=== PATIENT | female | born 1950 | race African-American/Black ===

== ENCOUNTER 2023-11-15 15:01 | Inpatient (IN) | payer OTHER, SELFPAY ==
[2023-11-15] VITALS (41 sets, daily range): BP systolic 179–229; BP diastolic 80–114; PULSE 75–105; RESP 18–30; TEMP 36.4–36.6; O2SAT 84–97; BMI 28.1; BMI 29.2
--- NOTE | 2023-11-15 15:39 | XR_ITS ---
Patient: INA LORENZO Facility:?[facility] R[facility] Patient ID:?[id number] Site Patient ID:?[id number]. Site :?[id number] Study:?XRay-Chest 1V-11/15/2023 3:55:00 PM Ordering Physician:?DR. SEXTON Final Report: Indication: Shortness of breath Comparison: None available. Technique: Single AP view chest Findings: There is hyperinflation and chronic interstitial change. There are diffusely increased interstitial markings likely representing pulmonary edema with small basilar pleural effusions. The cardiac silhouette is mildly prominent. The bony thorax is grossly intact. Impression: Diffusely increased interstitial markings likely representing pulmonary edema with likely small basilar pleural effusions with adjacent compressive atelectasis and/or infiltrates. Dictated by Jeremy Choudhury MD @ 11/15/2023 4:04:56 PM Signed by:?Jeremy Choudhury MD @11/15/2023 4:04:56 PM (Electronic Signature)
--- NOTE | 2023-11-15 15:42 | ED_ITS ---
HPI - General Adult General Date Seen: 11/15/23 Chief complaint: Shortness of Breath/Dyspnea Stated complaint: wheezing, coughing, swelling on legs Time Seen by Provider: 11/15/23 15:21 Source: patient and family Mode of arrival: ambulatory Limitations: language barrier History of Present Illness HPI narrative: Patient is a 73-year-old woman here with her grandson who is assisting with int erpretation at her request. She is [place]. History provided through her grandson is that she has a history of heart failure, seen at [place] for this last year. For a while now he says that she has complained of shortness of breath on and off, and he says that she has told them that she will have a good week and then the next week it will not be good. She does have a lot of swelling in her legs. She notes shortness of breath today, some tightness in her chest, she has had a cough as well. No fevers that he is aware of. He says he has not heard her complain about chest pain at home. She is on a number of medications, they do not know what any of them are although she is on something for blood pressure and something for diabetes. She normally goes to [place] [id number] as she lives in [place] but did not want to go there today. Related Data Home Medications Medication Instructions Recorded Confirmed acetaminophen 500 mg tablet 1,000 mg PO TID PRN 11/15/23 11/15/23 (Acetaminophen Extra Strength) albuterol sulfate 90 mcg/actuation 2 puff inhalation QID PRN dyspnea 11/15/23 11/15/23 aerosol inhaler amlodipine 10 mg tablet (Norvasc) 10 mg PO DAILY 11/15/23 11/15/23 carvedilol 25 mg tablet (Coreg) 25 mg PO BID 11/15/23 11/15/23 guanfacine 1 mg tablet 1 mg PO BID 11/15/23 11/15/23 hydralazine 50 mg tablet 50 mg PO BID 11/15/23 11/15/23 insulin aspart U-100 100 unit/mL 8 unit subcut DAILY 11/15/23 11/15/23 subcutaneous cartridge insulin glargine 100 unit/mL 30 unit subcut QPM 11/15/23 11/15/23 subcutaneous solution isosorbide mononitrate 30 mg 30 mg PO DAILY 11/15/23 11/15/23 tablet,extended release 24 hr omeprazole 40 mg capsule,delayed 40 mg PO DAILY 11/15/23 11/15/23 release peg 400-propylene glycol 0.4 %-0.3 1 drp ophthalmic (eye) BID PRN 11/15/23 11/15/23 % eye drops (Lubricant Eye (PG-PEG 400)) prochlorperazine maleate 10 mg 10 mg PO TID 11/15/23 11/15/23 tablet (Compazine) torsemide 20 mg tablet 60 mg PO DAILY 11/15/23 11/15/23 ergocalciferol (vitamin D2) 1,250 1,250 mcg PO Q7D 11/16/23 11/16/23 mcg (50,000 unit) capsule multivitamin with folic acid 400 1 tab PO DAILY 11/16/23 11/16/23 mcg tablet (Tab-A-Doreen) Allergies Allergy/AdvReac Type Severity Reaction Status Date / Time FIFI Inhibitors AdvReac Hyperkalemi Verified 11/15/23 20:36 a ARB-Angiotensin Receptor AdvReac Hyperkalemi Verified 11/15/23 20:36 Antagonist a Review of Systems Status of ROS: Reports: 10 or more systems reviewed and unremarkable except as noted in History and below [facility] Medical History (Updated 11/15/23 @ 20:49 by Analia Boss MD) Gastroesophageal reflux disease without esophagitis ?K21.9 - Gastro-esophageal reflux disease without esophagitis (ICD-10) Hyponatremia ?E87.1 - Hypo-osmolality and hyponatremia (ICD-10) Cardiovascular renal disease ?I13.10 - Hypertensive heart and chronic kidney disease without heart failure, with stage 1 through stage 4 chronic kidney disease, or unspecified chronic kidney disease (ICD-10) Hyperkalemia ?E87.5 - Hyperkalemia (ICD-10) Anemia ?D64.9 - Anemia, unspecified (ICD-10) Mixed stress and urge urinary incontinence ?N39.46 - Mixed incontinence (ICD-10) Helicobacter pylori gastrointestinal tract infection ?A04.8 - Other specified bacterial intestinal infections (ICD-10) Cataract ?H26.9 - Unspecified cataract (ICD-10) Polymyalgia rheumatica ?M35.3 - Polymyalgia rheumatica (ICD-10) Colon cancer screening declined ?Z53.20 - Procedure and treatment not carried out because of patient's decision for unspecified reasons (ICD-10) Mammogram declined ?Z53.20 - Procedure and treatment not carried out because of patient's decision for unspecified reasons (ICD-10) Chronic kidney disease, stage 4 (severe) ?N18.4 - Chronic kidney disease, stage 4 (severe) (ICD-10) Osteopenia ?M85.80 - Other specified disorders of bone density and structure, unspecified site (ICD-10) Diabetic polyneuropathy ?E11.42 - Type 2 diabetes mellitus with diabetic polyneuropathy (ICD-10) Hematuria ?R31.9 - Hematuria, unspecified (ICD-10) Contracture of muscle of right forearm ?M62.431 - Contracture of muscle, right forearm (ICD-10) Tension headache ?G44.209 - Tension-type headache, unspecified, not intractable (ICD-10) Type 2 diabetes mellitus ?E11.9 - Type 2 diabetes mellitus without complications (ICD-10) Hyperlipidemia ?E78.5 - Hyperlipidemia, unspecified (ICD-10) Hypertension ?I10 - Essential (primary) hypertension (ICD-10) (HFpEF) heart failure with preserved ejection fraction ?I50.30 - Unspecified diastolic (congestive) heart failure (ICD-10) Social History (Updated 11/15/23 @ 19:10 by Analia Boss MD) Narrative: Lives independently in an apartment. Grandson cares for her. Family also lives in [place] and she is typically cared for at [address] She is a lifelong nonsmoker. No alcohol use. Full code. What is your current living situation?: I presently have a place to live Problems where you live: no known problems Problems where you live details: n/a In the past 12 months, utilities in danger of being shut off: no In past 12 months, lack of transportation kept you from medical appts, meetings, work, or getting things needed for daily living: no In the past 12 mos, have been you worried that your food would run out before you had money to buy more?: never true In the past 12 mos, the food you bought just didn't last and you didn't have money to buy more?: never true Smoking Status: Never smoker Do you use any of these nicotine containing products: None Second hand tobacco smoke exposure: No How often do you have a drink containing alcohol: never How often do you have six or more drinks on one occasion: Never AUDIT-C Alcohol total score: 0 Non-prescribed substance use: denies use Caffeine: Yes (tea) How often does anyone, including family, friends and others, physically hurt you : never How often does anyone, including family, friends and others, insult or talk down to you: never How often does anyone, including family, friends and others, threaten you with harm: never How often does anyone, including family, friends and others, scream or curse at you: never service: No Exam Narrative: Exam Narrative: Vital signs as noted above. In general, an alert, nontoxic woman. She appears dyspneic with any exertion. Head: Normocephalic, atraumatic. Eyes: Pupils are equal reactive. Extraocular movements are full. Conjunctivae are normal. ENT: Mucous membranes are moist. Delete Neck: Supple without lymphadenopathy. Heart: Regular rate and rhythm. No murmur or rub. Lungs: Breath sounds are somewhat decreased, I do not hear significant crackles, no wheezes. Tachypneic with exertion. Abdomen: Soft and nontender. No organomegaly. Extremities: Well perfused. Mild to moderate edema noted in bilateral lower extremities. No calf tenderness or erythema. Neurologic: Patient is alert and oriented to person and place. Speech is fluent. Face is symmetric. Moves all extremities equally. Affect: Normal. Skin: Warm and dry. Well perfused. Const: Vital Signs, click to edit/add: Vital Signs - 24 hr 11/15/23 15:10 11/15/23 15:34 11/15/23 15:39 Temperature 97.5 F L Pulse Rate 79 Pulse Rate [Pulse Oximeter] 80 Respiratory Rate Blood Pressure 204/108 H Blood Pressure [Ri ght Arm] Blood Pressure [Ri ght Upper Arm] 216/80 H Pulse Oximetry 96 95 95 Oxygen Delivery Me thod Room Air Oxygen Flow Rate 11/15/23 15:40 11/15/23 15:45 11/15/23 16:00 Temperature Pulse Rate 77 79 80 Pulse Rate [Pulse Oximeter] Respiratory Rate Blood Pressure Blood Pressure [Ri ght Arm] Blood Pressure [Ri ght Upper Arm] Pulse Oximetry 94 94 93 Oxygen Delivery Me thod Oxygen Flow Rate 11/15/23 16:02 11/15/23 16:15 11/15/23 16:18 Temperature Pulse Rate 78 77 85 Pulse Rate [Pulse Oximeter] Respiratory Rate Blood Pressure 229/104 H 228/114 H Blood Pressure [Ri ght Arm] Blood Pressure [Ri ght Upper Arm] Pulse Oximetry 94 94 94 Oxygen Delivery Me thod Oxygen Flow Rate 11/15/23 16:30 11/15/23 16:32 11/15/23 16:33 Temperature Pulse Rate 76 80 89 Pulse Rate [Pulse Oximeter] Respiratory Rate Blood Pressure 216/107 H Blood Pressure [Ri ght Arm] Blood Pressure [Ri ght Upper Arm] Pulse Oximetry 93 95 94 Oxygen Delivery Me thod Oxygen Flow Rate 11/15/23 16:35 11/15/23 16:45 11/15/23 17:00 Temperature Pulse Rate 76 76 Pulse Rate [Pulse Oximeter] 105 H Respiratory Rate 30 H Blood Pressure Blood Pressure [Ri ght Arm] Blood Pressure [Ri ght Upper Arm] Pulse Oximetry 84 L 94 94 Oxygen Delivery Me thod Room Air Oxygen Flow Rate 11/15/23 17:00 11/15/23 17:03 11/15/23 17:10 Temperature Pulse Rate 75 Pulse Rate [Pulse Oximeter] Respiratory Rate Blood Pressure 225/99 H Blood Pressure [Ri ght Arm] Blood Pressure [Ri ght Upper Arm] Pulse Oximetry 94 95 84 L Oxygen Delivery Me thod Nasal Cannula Room Air Oxygen Flow Rate 2 11/15/23 17:27 Temperature 97.8 F Pulse Rate Pulse Rate [Pulse Oximeter] Respiratory Rate 18 Blood Pressure Blood Pressure [Ri ght Arm] 205/101 H Blood Pressure [Ri ght Upper Arm] Pulse Oximetry 97 Oxygen Delivery Me thod Room Air Oxygen Flow Rate Documenting provider has reviewed patient's vital signs: yes Course Course ED Course: Patient has never been here before but we were able to get records from a recent clinic visit on September 30. She has a history of congestive heart failure with preserved ejection fraction, though I do not have a prior echo. She takes Coreg, isosorbide, torsemide 60 mg daily for her heart failure. She is on insulin for her diabetes. Other medications reviewed. It looks as if she has chronic renal insufficiency, creatinine runs between 1.4-1.9 on prior labs. Last BNP which was in April of 2023 was 821. It also notes at her clinic visit that [place] was [place] of the country [place] months prior to that. She does have bilateral lower extremity edema today, O2 sats are 95-96% on room air although she appears dyspneic with even mild exertion. Diagnostic considerations include exacerbation of congestive heart failure, pulmonary infections such as pneumonia or influenza, pulmonary embolism, acute coronary syndrome, pleural effusion among others. Lab and x-ray pending. Chest x-ray shows cardiomegaly and pulmonary edema. Final radiology read as follows:Findings: There is hyperinflation and chronic interstitial change. There are diffusely increased interstitial markings likely representing pulmonary edema with small basilar pleural effusions. The cardiac silhouette is mildly prominent. The bony thorax is grossly intact. Impression: Diffusely increased interstitial markings likely representing pulmonary edema with likely small basilar pleural effusions with adjacent compressive atelectasis and/or infiltrates. I gave 60 of IV Lasix, a sublingual nitro. She is on Imdur chronically. Labs are notable for a white blood cell count of 12.5, hemoglobin of 11.2. Metabolic panel notable for mildly increased creatinine of 1.6, GFR of 33. D-dimer was elevated at 2.7. Blood gas is normal. LFTs are unremarkable, CRP mildly elevated at 3.4, BNP elevated at 5840. COVID influenza and RSV are negative. Point of care troponin was 0.02. EKG showed a ventricular rate of 80, sinus rhythm, right bundle branch block. No previous EKGs available for comparison. Ambulatory, she is significantly dyspneic, O2 sats are 84%. I do think she needs hospitalization for diuresis. D-dimer is significantly elevated, she had traveled back from [place] in August. I talked with them about CT verses anticoagulation in observation given her GFR, she would like to proceed with CT scan today. Care is discussed with hospitalist, she will be admitted to the hospital for further care. Vital Signs Vital signs: Initial Vital Signs Temperature 97.5 F L 11/15/23 15:10 Temperature Source Temporal Artery Scan 11/15/23 15:10 Pulse Rate 80 11/15/23 15:10 Blood Pressure 216/80 H 11/15/23 15:10 Blood Pressure Mean 125 H 11/15/23 15:10 Blood Pressure Position Sitting 11/15/23 15:10 Pulse Oximetry 96 11/15/23 15:10 Oxygen Delivery Method Room Air 11/15/23 15:10 Vital Signs Temperature 97.5 F L 11/15/23 15:10 Pulse Rate 80 11/15/23 15:10 Blood Pressure 216/80 H 11/15/23 15:10 Pulse Oximetry 96 11/15/23 15:10 Oxygen Delivery Method Room Air 11/15/23 15:10 Temperature 97.9 F 11/16/23 09:00 Pulse Rate 72 11/16/23 10:00 Respiratory Rate 22 11/16/23 09:00 Blood Pressure 128/70 11/16/23 10:00 Pulse Oximetry 95 11/16/23 09:00 Oxygen Delivery Method Room Air 11/16/23 09:00 Oxygen Flow Rate 2 11/15/23 17:00 Medications Administered Medications: Generic Name Dose Route Start Last Admin Trade Name Freq PRN Reason Stop Dose Admin Amlodipine Besylate 10 mg 11/16/23 09:00 11/16/23 08:12 Amlodipine 10 Mg Tablet PO 10 mg DAILY KENNETH Administration Carvedilol 25 mg 11/15/23 21:00 11/16/23 08:12 Carvedilol 25 Mg Tablet PO 25 mg BID KENNETH Administration Hydralazine HCl 50 mg 11/16/23 09:00 11/16/23 08:11 Hydralazine 25 Mg Tablet PO 25 mg TID KENNETH Administration Insulin Aspart 0 unit 11/15/23 21:00 11/16/23 07:37 Insulin Aspart 100 Unit/Ml SUBCUT Not Given ACHS [facility] Protocol Isosorbide Mononitrate 60 mg 11/16/23 09:00 11/16/23 08:11 Isosorbide Mononitrate Er 30 Mg Tab PO 60 mg DAILY KENNETH Administration Multivitamins/Minerals 1 tab 11/16/23 09:00 11/16/23 08:12 Multivitamin/Minerals 1 Tablet PO 1 tab DAILY [facility] Administration Guanfacine 1 Mg 0 mg 11/16/23 09:00 11/16/23 08:24 Tablet PO Not Given BID KENNETH Omeprazole 40 mg 11/16/23 09:00 11/16/23 08:12 Omepraz[address] PO 40 mg DAILY KENNETH Administration Sodium Chloride 5 ml 11/15/23 21:00 11/16/23 08:12 Sodium Chloride 0.9 % (Flush) 10 Ml Syringe IVF 5 ml BID KENNETH Administration Discontinued Medications Generic Name Dose Route Start Last Admin Trade Name Freq PRN Reason Stop Dose Admin Enoxaparin Sodium 30 mg 11/15/23 19:00 11/15/23 19:47 Enoxaparin 30 Mg/0.3ml Inj SUBCUT 30 mg Q24H KENNETH Administration Furosemide 60 mg 11/15/23 16:00 11/15/23 16:13 Furosemide 10 Mg/Ml Inj IVP 11/15/23 16:01 60 mg ONCE ONE Administration Furosemide 60 mg 11/16/23 08:00 11/16/23 08:13 Furosemide 10 Mg/Ml Inj IVP 60 mg BID@08,16 KENNETH Administration Hydralazine HCl 50 mg 11/15/23 21:30 11/15/23 22:14 Hydralazine 25 Mg Tablet PO 50 mg BID KENNETH Administration Nitroglycerin/Dextrose 25,000 mcg in 250 mls @ 3 mls/hr 11/15/23 20:16 11/16/23 01:00 Nitroglycerin/Dextrose IVPB 0 mcg/min .TITRATE PRN 0 mls/hr Hypertension Infusion Protocol 5 MCG/MIN Nitroglycerin 0.4 mg 11/15/23 16:00 11/15/23 16:15 Nitroglycerin 0.4 Mg Tab.Subl SUBLINGUAL 11/15/23 16:01 0.4 mg ONCE ONE Administration Non-Formulary Medication 1 mg 11/15/23 21:00 11/16/23 08:13 Guanfacine PO Not Given BID [facility] Medical Decision Making Lab Data Labs: Lab Results 11/15/23 11/15/23 Range/Units 15:40 16:00 WBC 12.48 H (4.50-11.00) K/uL RBC 3.58 L (4.00-5.20) m/uL Hgb 11.2 L (12.0-16.0) gm/dL Hct 35.1 (33.0-51.0) % MCV 98 (80-100) fL MCH 31 (26-34) pg MCHC 32 (32-36) gm/dL RDW Coeff of Lauri 13.2 (11.5-15.5) % Plt Count 332 (140-440) K/uL Neut % (Auto) 60.0 (42.0-72.0) % Lymph % (Auto) 28.1 (20-44) % Barron % (Auto) 7.9 (0.0-11.0) % Eos % (Auto) 3.3 (0.0-7.0) % Baso % (Auto) 0.3 (0.0-3.0) % Neut # (Auto) 7.50 H (1.7-7.0) K/uL Lymph # (Auto) 3.50 H (0.90-2.90) K/uL Barron # (Auto) 1.00 H (0.00-0.90) K/UL Eos # (Auto) 0.40 (0.00-0.50) K/uL Baso # (Auto) 0.00 (0.00-0.30) K/uL Abs Immat Gran (auto) 0.00 (0.00-0.30) K/uL Imm/Tot Granulo (auto) 0.4 % D-Dimer Quant (PE/DVT) 2.72 H (0.00-0.50) ug/ml VBG pH 7.397 (7.32-7.43) VBG pCO2 39 L (40-50) mmHG VBG pO2 43.7 (25-47) mmHG VBG HCO3 24 (21-28) mmol/L Sodium 138 (135-149) mmol/L Potassium 4.3 (3.6-5.1) mmol/L Chloride 108 (96-114) mmol/L Carbon Dioxide 23 (20-32) mmol/L Anion Gap 7 (7-15) mEq/L BUN 33 H (7-30) mg/dL Creatinine 1.6 H (0.5-1.5) mg/dL Estimated Creat Clear 30.65 Estimated GFR 33 ml/min Glucose 85 (60-115) mg/dL Calcium 9.0 (8.4-10.6) mg/dL Total Bilirubin 0.6 (0.1-1.5) mg/dL Direct Bilirubin 0.2 (0.0-0.5) mg/dL AST 39 H (12-35) U/L ALT 27 (4-35) U/L Alkaline Phosphatase 140 (40-150) U/L C-Reactive Protein 3.4 H (0.5-1.0) mg/dL NT-Pro-B Natriuret Pep 5840 pg/mL Total Protein 8.7 H (6.0-8.3) g/dL Albumin 3.8 (3.3-5.0) g/dL TSH 3.250 (0.270-4.200) uIU/mL SARS-CoV-2 (PCR) Negative SARS-CoV-2 (Negative) Influenza Type A (PCR) Negative PCR FLU A (Negative) Influenza Type B (PCR) Negative PCR FLU B (Negative) RSV (PCR) Negative PCR RSV (Negative) POC Troponin I 0.02 (0.01-0.04) ng/ml Discharge Plan Discharge Clinical Impression: Congestive heart failure Patient Disposition: Admitted As Observation Condition: Stable
[2023-11-15 16:10] LABS: HCO3 VBG 24 mmol/L (21-28); PCO2 VBG 39 mmHG (40-50); PO2 VBG 43.7 mmHG (25-47); pH VBG 7.397 (7.32-7.43)
[2023-11-15 16:13] LABS: Basophils Percent Auto 0.3 % (0.0-3.0); Eosinophils Percent Auto 3.3 % (0.0-7.0); Hematocrit 35.1 % (33.0-51.0); Hemoglobin* 11.2 gm/dL (12.0-16.0); Immature Granulocytes Pct Auto 0.4 %; Lymphocytes Percent Auto 28.1 % (20-44); Mean Corpuscular HGB Conc 32 gm/dL (32-36); Mean Corpuscular Hemoglobin 31 pg (26-34); Mean Corpuscular Volume 98 fL (80-100); Monocytes Percent Auto 7.9 % (0.0-11.0); Platelet Count* 332 K/uL (140-440); RDW Coefficient of Variation % 13.2 % (11.5-15.5); Red Blood Count 3.58 m/uL (4.00-5.20); Slide Review Reflex No; White Blood Count* 12.48 K/uL (4.50-11.00)
[2023-11-15] MEDS: FUROSEMIDE 10 MG/ML inj 60 MG IVP (16:13)
[2023-11-15] MEDS: NITROGLYCERIN 0.4 MG TAB.SUBL SUBLINGUAL (16:15)
[2023-11-15 16:16] LABS: Troponin, Point-of-Care* 0.02 ng/ml (0.01-0.04)
[2023-11-15 16:26] LABS: Albumin* 3.8 g/dL (3.3-5.0); Chloride* 108 mmol/L (96-114); Sodium* 138 mmol/L (135-149)
[2023-11-15 16:27] LABS: Potassium* 4.3 mmol/L (3.6-5.1)
[2023-11-15 16:30] LABS: Alanine Aminotransferase* 27 U/L (4-35); Alkaline Phosphatase* 140 U/L (40-150); Anion Gap 7 mEq/L (7-15); Aspartate Amino Transferase* 39 U/L (12-35); Bilirubin Direct* 0.2 mg/dL (0.0-0.5); Bilirubin Total* 0.6 mg/dL (0.1-1.5); Blood Urea Nitrogen* 33 mg/dL (7-30); Carbon Dioxide* 23 mmol/L (20-32); Creatinine* 1.6 mg/dL (0.5-1.5); Est. Creatinine Clearance* 30.65; Estimated Glomerular Filt Rate 33 ml/min; Glucose* 85 mg/dL (60-115); Total Protein* 8.7 g/dL (6.0-8.3)
[2023-11-15 16:31] LABS: D Dimer Quantitative* 2.72 ug/ml (0.00-0.50)
[2023-11-15 16:32] LABS: C Reactive Protein* 3.4 mg/dL (0.5-1.0)
[2023-11-15 16:40] LABS: NT Pro B Type NatriureticPept* 5840 pg/mL
[2023-11-15 16:57] LABS: PCR FLU A Negative PCR FLU A (Negative); PCR FLU B Negative PCR FLU B (Negative); PCR RSV Negative PCR RSV (Negative); SARS PCR* Negative SARS-CoV-2 (Negative)
--- NOTE | 2023-11-15 16:59 | CT_ITS ---
Patient: INA LORENZO Facility:?[facility] R[facility] Patient ID:?[id number] Site Patient ID:?[id number]. Site :?[id number] Study:?CT-Chest PE 95CC ISOVUE 370-11/15/2023 5:28:09 PM Ordering Physician:?DR. SEXTON Final Report: INDICATION: Shortness of breath, elevated D-dimer. TECHNIQUE: CT chest PE was acquired with 95 cc Isovue 370 IV contrast. COMPARISON: None. FINDINGS: Heart and vasculature: Contrast opacification of the pulmonary arterial tree is adequate. No sign of pulmonary embolism. Cardiomegaly. Thoracic aorta and pulmonary artery are normal in caliber. Lungs and pleura: Interseptal thickening with mosaic attenuation throughout the lungs. No focal consolidations. Trace pleural effusions with compressive atelectasis. No pneumothorax. Lymph nodes/mediastinum: Multiple mildly enlarged mediastinal lymph nodes. Chest wall: No masses. Upper abdomen: No acute or significant findings. Bones: Unremarkable for age. IMPRESSION: No pulmonary embolism. Mild interseptal thickening and mosaic attenuation, possibly small vessel/airway disease or pulmonary edema. No focal consolidations. Trace bilateral pleural effusions. Cardiomegaly. Additional reflux of contrast into the hepatic veins suggestive of elevated right heart pressures Multiple mildly enlarged mediastinal lymph nodes, possibly reactive. Please note that all CT scans at this facility use dose modulation, iterative reconstruction, and/or weight-based dosing when appropriate to reduce radiation dose to as low as reasonably achievable. Dictated by Guerrero Islas MD @ 11/15/2023 5:36:36 PM Signed by:?Guerrero Islas MD @11/15/2023 5:36:36 PM
--- NOTE | 2023-11-15 18:06 | P.IMHP_ITS ---
Hospitalist- H&P: PIERRE History of Present Illness Time Seen by Provider: 17:50 Date Seen: 11/15/23 Chief complaint: wheezing, coughing, swelling on legs Narrative: Skylar Pepe is a 73 year old female with a past medical history significant for HFpEF, hypertension, hyperlipidemia, type 2 diabetes mellitus, CKD stage IV, polymyalgia rheumatica, and diabetic polyneuropathy who presents with cough and shortness of breath. Her grandson is in the room with her. She declines electrophysiology nurse practitioner and he interprets for her. Her son, Mansoor, was on his son's phone and we had a brief conversation about heart failure with preserved ejection fraction, hypertensive urgency, and the plan of care. She complains of a wet cough that is nonproductive. This has been going on for a few weeks. During that time she has also become increasingly more short of breath both at night an d with activity. She gets significantly short of breath just going 10 ft to the bathroom. Sometime she is even short of breath sitting in the chair. At night she sleeps for about an hour and then wakes up coughing, feeling short of breath, and then lays back down on her right side, flat, to sleep. She then continues to wake up every hour with these same symptoms throughout the night. She has chronic lower extremity edema, but has not noticed any worsening over the last few weeks. She occasionally has some chest pain and headache as well. Her history is notable for tension headaches. She does not have any known heart disease, but does have longstanding diabetes. This is her 5th admission for HF exacerbation in the past year. Three were between December-January 2023 and were associated with LYNETTE. Her last admission was in March, her BNP was 1,015, and she was discharged home with home health care. She tells me she has been on a low-sodium diet and fluid restriction. Her son asked me if she could be transferred to [address] because her family all lives in [place]. We discussed how she was given this option in the ER prior to admission, and chose to stay at our hospital. At this time since she is already admitted to our hospital it is more challenging to transfer her. We discussed that this would be a lateral transfer and she has a potential need for oxygen and medical care for which she would need an ambulance transfer, which to my understanding, would likely not be covered by insurance. I informed them that she is able to leave [facility] and go to the ER at [place] [phone] if that is her wish, but it would be against my medical advice. He demonstrated understanding and asked that she stay in the hospital here tonight. Review of Systems Status of ROS: Reports: 10 or more systems reviewed and unremarkable except as noted in History and below [facility] Medical History (Updated 11/15/23 @ 20:49 by Analia Boss MD) Gastroesophageal reflux disease without esophagitis ?K21.9 - Gastro-esophageal reflux disease without esophagitis (ICD-10) Hyponatremia ?E87.1 - Hypo-osmolality and hyponatremia (ICD-10) Cardiovascular renal disease ?I13.10 - Hypertensive heart and chronic kidney disease without heart failure, with stage 1 through stage 4 chronic kidney disease, or unspecified chronic kidney disease (ICD-10) Hyperkalemia ?E87.5 - Hyperkalemia (ICD-10) Anemia ?D64.9 - Anemia, unspecified (ICD-10) Mixed stress and urge urinary incontinence ?N39.46 - Mixed incontinence (ICD-10) Helicobacter pylori gastrointestinal tract infection ?A04.8 - Other specified bacterial intestinal infections (ICD-10) Cataract ?H26.9 - Unspecified cataract (ICD-10) Polymyalgia rheumatica ?M35.3 - Polymyalgia rheumatica (ICD-10) Colon cancer screening declined ?Z53.20 - Procedure and treatment not carried out because of patient's decision for unspecified reasons (ICD-10) Mammogram declined ?Z53.20 - Procedure and treatment not carried out because of patient's decision for unspecified reasons (ICD-10) Chronic kidney disease, stage 4 (severe) ?N18.4 - Chronic kidney disease, stage 4 (severe) (ICD-10) Osteopenia ?M85.80 - Other specified disorders of bone density and structure, unspecified site (ICD-10) Diabetic polyneuropathy ?E11.42 - Type 2 diabetes mellitus with diabetic polyneuropathy (ICD-10) Hematuria ?R31.9 - Hematuria, unspecified (ICD-10) Contracture of muscle of right forearm ?M62.431 - Contracture of muscle, right forearm (ICD-10) Tension headache ?G44.209 - Tension-type headache, unspecified, not intractable (ICD-10) Type 2 diabetes mellitus ?E11.9 - Type 2 diabetes mellitus without complications (ICD-10) Hyperlipidemia ?E78.5 - Hyperlipidemia, unspecified (ICD-10) Hypertension ?I10 - Essential (primary) hypertension (ICD-10) (HFpEF) heart failure with preserved ejection fraction ?I50.30 - Unspecified diastolic (congestive) heart failure (ICD-10) Social History (Updated 11/15/23 @ 19:10 by Analia Boss MD) Narrative: Lives independently in an apartment. Grandson cares for her. Family also lives in [place] and she is typically cared for at [address] She is a lifelong nonsmoker. No alcohol use. Full code. What is your current living situation?: I presently have a place to live Problems where you live: no known problems Problems where you live details: n/a In the past 12 months, utilities in danger of being shut off: no In past 12 months, lack of transportation kept you from medical appts, meetings, work, or getting things needed for daily living: no In the past 12 mos, have been you worried that your food would run out before you had money to buy more?: never true In the past 12 mos, the food you bought just didn't last and you didn't have money to buy more?: never true Smoking Status: Never smoker Do you use any of these nicotine containing products: None Second hand tobacco smoke exposure: No How often do you have a drink containing alcohol: never How often do you have six or more drinks on one occasion: Never AUDIT-C Alcohol total score: 0 Non-prescribed substance use: denies use Caffeine: Yes (tea) How often does anyone, including family, friends and others, physically hurt you : never How often does anyone, including family, friends and others, insult or talk down to you: never How often does anyone, including family, friends and others, threaten you with harm: never How often does anyone, including family, friends and others, scream or curse at you: never service: No Meds Home Medications and Allergies Home Medications Medication Instructions Recorded Confirmed Type acetaminophen 500 mg tablet 1,000 mg PO TID PRN 11/15/23 11/15/23 History (Acetaminophen Extra Strength) albuterol sulfate 90 mcg/actuation 2 puff inhalation QID PRN dyspnea 11/15/23 11/15/23 History aerosol inhaler alum-mag hydroxide-simeth PO 11/15/23 History amlodipine 10 mg tablet (Norvasc) 10 mg PO DAILY 11/15/23 11/15/23 History carvedilol 25 mg tablet (Coreg) 25 mg PO BID 11/15/23 11/15/23 History guanfacine 1 mg tablet 1 mg PO BID 11/15/23 11/15/23 History hydralazine 50 mg tablet 50 mg PO BID 11/15/23 11/15/23 History insulin aspart U-100 100 unit/mL 8 unit subcut DAILY 11/15/23 11/15/23 History subcutaneous cartridge insulin glargine 100 unit/mL 30 unit subcut QPM 11/15/23 11/15/23 History subcutaneous solution isosorbide mononitrate 30 mg 30 mg PO DAILY 11/15/23 11/15/23 History tablet,extended release 24 hr multivitamin (Daily Multi-Vitamin 1 tab PO DAILY 11/15/23 11/15/23 History tablet) omeprazole 40 mg capsule,delayed 40 mg PO DAILY 11/15/23 11/15/23 History release peg 400-propylene glycol 0.4 %-0.3 1 drp ophthalmic (eye) BID PRN 11/15/23 11/15/23 History % eye drops (Lubricant Eye (PG-PEG 400)) prochlorperazine maleate 10 mg 10 mg PO TID 11/15/23 11/15/23 History tablet (Compazine) torsemide 20 mg tablet 60 mg PO DAILY 11/15/23 11/15/23 History Allergies Allergy/AdvReac Type Severity Reaction Status Date / Time FIFI Inhibitors AdvReac Hyperkalemi Verified 11/15/23 20:36 a ARB-Angiotensin Receptor AdvReac Hyperkalemi Verified 11/15/23 20:36 Antagonist a Exam Narrative: Exam Narrative: General: No acute distress. There is a language barrier and her grandson translated, they refused an electrophysiology nurse practitioner. Awake, alert, oriented. HEENT: Normocephalic atraumatic, pupils equally round and reactive to light and accommodation, bilateral cataracts. Oropharynx clear. Mucous membranes are moist. No cervical lymphadenopathy, thyromegaly or carotid bruits. JVD and HJR are present. Cardiovascular: Regular rate and rhythm. No murmurs, gallops, or rubs. Chest: No increased work of breathing. Coarse at both bases, fine bibasilar crackles. Abdomen: Bowel sounds present. Soft, nondistended, nontender. No hepatosplenomegaly or masses. Extremities: 2+ bilateral lower extremity edema to mid calves, no cyanosis or clubbing. Feet are warm and well perfused without ulcers or calluses, 2+ pulses both dorsalis pedis. Skin: No jaundice, no pallor, no rashes. Neuro: Grossly intact. No focal deficits. Const: Vital Signs, click to edit/add: Vital Signs - 24 hr 11/15/23 15:10 11/15/23 15:34 11/15/23 15:39 Temperature 97.5 F L Pulse Rate 79 Pulse Rate [Pulse Oximeter] 80 Respiratory Rate Blood Pressure 204/108 H Blood Pressure [Ri ght Upper Arm] 216/80 H Pulse Oximetry 96 95 95 Oxygen Delivery Me thod Room Air Oxygen Flow Rate 11/15/23 15:40 11/15/23 15:45 11/15/23 16:00 Temperature Pulse Rate 77 79 80 Pulse Rate [Pulse Oximeter] Respiratory Rate Blood Pressure Blood Pressure [Ri ght Upper Arm] Pulse Oximetry 94 94 93 Oxygen Delivery Me thod Oxygen Flow Rate 11/15/23 16:02 11/15/23 16:15 11/15/23 16:18 Temperature Pulse Rate 78 77 85 Pulse Rate [Pulse Oximeter] Respiratory Rate Blood Pressure 229/104 H 228/114 H Blood Pressure [Ri ght Upper Arm] Pulse Oximetry 94 94 94 Oxygen Delivery Me thod Oxygen Flow Rate 11/15/23 16:30 11/15/23 16:32 11/15/23 16:33 Temperature Pulse Rate 76 80 89 Pulse Rate [Pulse Oximeter] Respiratory Rate Blood Pressure 216/107 H Blood Pressure [Ri ght Upper Arm] Pulse Oximetry 93 95 94 Oxygen Delivery Me thod Oxygen Flow Rate 11/15/23 16:35 11/15/23 16:45 11/15/23 17:00 Temperature Pulse Rate 76 76 Pulse Rate [Pulse Oximeter] 105 H Respiratory Rate 30 H Blood Pressure Blood Pressure [Ri ght Upper Arm] Pulse Oximetry 84 L 94 94 Oxygen Delivery Me thod Room Air Oxygen Flow Rate 11/15/23 17:00 11/15/23 17:03 11/15/23 17:10 Temperature Pulse Rate 75 Pulse Rate [Pulse Oximeter] Respiratory Rate Blood Pressure 225/99 H Blood Pressure [Ri ght Upper Arm] Pulse Oximetry 94 95 84 L Oxygen Delivery Me thod Nasal Cannula Room Air Oxygen Flow Rate 2 Hospitalist - H&P: Result Labs Labs: Short CBC 11/15/23 Range/Units 16:00 WBC 12.48 H (4.50-11.00) K/uL Hgb 11.2 L (12.0-16.0) gm/dL Hct 35.1 (33.0-51.0) % Plt Count 332 (140-440) K/uL BMP 11/15/23 16:00 Sodium 138 Potassium 4.3 Chloride 108 Carbon Dioxide 23 BUN 33 H Creatinine 1.6 H Glucose 85 Calcium 9.0 Liver Function 11/15/23 Range/Units 16:00 Total Bilirubin 0.6 (0.1-1.5) mg/dL Direct Bilirubin 0.2 (0.0-0.5) mg/dL AST 39 H (12-35) U/L ALT 27 (4-35) U/L Alkaline Phosphatase 140 (40-150) U/L Albumin 3.8 (3.3-5.0) g/dL 11/15/2023 EKG: Normal sinus rhythm, 80 beats per minute, right bundle-branch block. Abnormal EKG. Study: XRay Chest 1V-11/15/2023 3:55:00 PM Ordering Physician: DR. SEXTON Final Report: Indication: Shortness of breath Comparison: None available. Technique: Single AP view chest Findings: There is hyperinflation and chronic interstitial change. There are diffusely increased interstitial markings likely representing pulmonary edema with small basilar pleural effusions. The cardiac silhouette is mildly prominent. The bony thorax is grossly intact. Impression: Diffusely increased interstitial markings likely representing pulmonary edema with likely small basilar pleural effusions with adjacent compressive atelectasis and/or infiltrates. Dictated by Jeremy Choudhury MD @ 11/15/2023 4:04:56 PM (Electronic Signature) Study: CT Chest PE 95CC ISOVUE 370-11/15/2023 5:28:09 PM Ordering Physician: DR. SEXTON Final Report: INDICATION: Shortness of breath, elevated D-dimer. TECHNIQUE: CT chest PE was acquired with 95 cc Isovue 370 IV contrast. COMPARISON: None. FINDINGS: Heart and vasculature: Contrast opacification of the pulmonary arterial tree is adequate. No sign of pulmonary embolism. Cardiomegaly. Thoracic aorta and pulmonary artery are normal in caliber. Lungs and pleura: Interseptal thickening with mosaic attenuation throughout the lungs. No focal consolidations. Trace pleural effusions with compressive atelectasis. No pneumothorax. Lymph nodes/mediastinum: Multiple mildly enlarged mediastinal lymph nodes. Chest wall: No masses. Upper abdomen: No acute or significant findings. Bones: Unremarkable for age. IMPRESSION: No pulmonary embolism. Mild interseptal thickening and mosaic attenuation, possibly small vessel/airway disease or pulmonary edema. No focal consolidations. Trace bilateral pleural effusions. Cardiomegaly. Additional reflux of contrast into the hepatic veins suggestive of elevated right heart pressures Multiple mildly enlarged mediastinal lymph nodes, possibly reactive. Please note that all CT scans at this facility use dose modulation, iterative reconstruction, and/or weight-based dosing when appropriate to reduce radiation dose to as low as reasonably achievable. Dictated by Guerrero Islas MD @ 11/15/2023 5:36:36 PM (Electronic Signature) Assessment and Plan Assessment and plan (1) Acute on chronic heart failure with preserved ejection fraction (HFpEF): Problem comment: - signs of volume overload include shortness of breath at rest, dyspnea on exertion, orthopnea, paroxysmal nocturnal dyspnea, lower extremity edema. Chest x-ray and CTA chest are also suggestive of pulmonary edema with small pleural effusions. CTA chest was negative for PE. Her proBNP is markedly elevated at 5840. She had BNP upon admission for heart failure in March 2023 that was 1,015. Her most recent echocardiogram was 12/23/2022 which showed an EF of 69%. She had previously taken an FIFI-inhibitor an ARB, but these were discontinued secondary to hyperkalemia. She has been taking torsemide 60 mg p.o. daily at home. - start furosemide 60 mg IV b.i.d., 2 g sodium per day diet, 1500 mL per day fluid restriction, monitor I's and O's, daily weights, BMP Status: Acute (2) Hypertensive urgency: Problem comment: - Possibly contributing to heart failure, patient now symptomatic with mild chest pain and mild frontal headache. Initial troponin in the emergency department was unremarkable as was EKG, repeat EKG and troponin are pending. - transfer to CCU and start nitro drip to slowly bring down blood pressure. Initially will try to bring down systolic blood pressure to 190 and hold there as that will be 10% decrease. I suspect her blood pressure will also decrease with diuresis. Will also resume her home medications. Status: Acute (3) Hypertension: Problem comment: - chronic, uncontrolled - home antihypertensives include amlodipine, carvedilol, hydralazine, torsemide, isosorbide mononitrate Status: Chronic (4) Hyperlipidemia: Problem comment: - Chronic and stable - Continue statin Status: Chronic (5) Type 2 diabetes mellitus: Problem comment: - 03/2012 onset - 09/30/2023 hemoglobin A1c 9.4%, uncontrolled - home regimen includes long-acting and short-acting insulin. Continue this and add medium insulin sliding scale a.c. at bedtime Status: Chronic (6) Chronic kidney disease, stage 4 (severe): Problem comment: - abnormal urine microalbumin - per [facility] records baseline creatinine appears to be 1.3-1.6. She does have higher values up to 2.5, but these appear to be associated with admissions for heart failure. - creatinine today is 1.6 - monitor while diuresing Status: Chronic (7) Anemia: Problem comment: - Per [facility] records baseline hemoglobin is 10-11. Hemoglobin on admission is 11.2. - chronic, stable Status: Chronic Plan VTE prophylaxis: SCDs and Guzman's hose. Patient got a dose of low-dose, renally adjusted enoxaparin but has declined any further enoxaparin or heparin due to it being porcine derived. Total Time Spent Total Time Spent: Critical care time spent 90 minutes which include several conversations with the patient and her grandson and son as well as management of heart failure with preserved ejection fraction and hypertensive urgency.
[2023-11-15] MEDS: ENOXAPARIN 30 MG/0.3ML INJ SUBCUT (19:47)
--- NOTE | 2023-11-15 19:59 | PC.NURSE ---
Patient arrived at 1727 from ED accompanied by her grandson. Ambulates independently with quad cane. O2 sats 97% on arrival. Tolerated regular diet. Denies any pain. Grandson here interpreting during admission. Family member will be staying with patient?during hospital stay.?
[2023-11-15 20:04] LABS: Troponin I* 0.02 ng/mL (0.01-0.04)
[2023-11-15] MEDS: NITROGLYCERIN/DEXTROSE 25,000 MCG/250 ML BOTTLE 3 MCG IVPB (21:56)
[2023-11-15] MEDS: carvediloL 25 MG TABLET PO (22:10)
[2023-11-15] MEDS: SODIUM CHLORIDE 0.9 % (FLUSH) 10 ML SYRINGE 5 ML IVF (22:10)
[2023-11-15] MEDS: INSULIN ASPART 100 UNIT/ML SUBCUT (22:11)
[2023-11-15] MEDS: HYDRALAZINE 25 MG TABLET 50 MG PO (22:14)
[2023-11-16] VITALS (27 sets, daily range): BP systolic 117–196; BP diastolic 60–100; PULSE 34–86; RESP 18–22; TEMP 36.4–36.9; O2SAT 89–95
--- NOTE | 2023-11-16 00:30 | US_ITS ---
Patient: INA LORENZO Facility:?[facility]IS Patient ID:?[id number] Site Patient [id number]:?[id number]. Site :?[id number] Study:?US-Extremity Right LEV-11/16/2023 1:36:36 AM Ordering Physician:NAT NAVARRETE Final Report: INDICATION: Leg pain and swelling. TECHNIQUE: Ultrasound venous duplex lower right extremity. Compression venous exam was performed using lipscomb-scale, color Doppler, and spectral Doppler analysis. COMPARISON: None. FINDINGS: Deep veins: Sonographic imaging demonstrates the right common femoral, deep femoral, superficial femoral, popliteal, posterior tibial, and the contralateral left common femoral veins to be fully compressible with normal color Doppler blood flow. Superficial veins: Greater saphenous vein is fully compressible. No popliteal cyst. IMPRESSION: No sign of deep venous thrombosis in the right lower extremity. Dictated by Tigre Chu MD @ 11/16/2023 1:42:24 AM Signed by:?Tigre Chu MD @11/16/2023 1:42:24 AM (Electronic Signature)
--- NOTE | 2023-11-16 06:17 | PC.NURSE ---
: Patient cooperative with cares. A&Ox3. Family at bedside and acts as the sprayer machine. Denies chest pain/pressure. SOB w/activity. Intermittent non-productive cough (chronic). Nitroglycerin drip initiated at 2200 and titrated for desired systolic pressure of 190. Drip was paused at 0100 b/c systolic dropped to 155. Horizon MD updated. Verbal order to continue monitoring Q1H BP and to restart drip if systolic >190. Patient requested BG check at 0430 and it resulted at 61. OJ and Snack given. Recheck at 0530 was 154. SBA w/quad cane.
[2023-11-16 06:27] LABS: Basophils Absolute Auto 0.05 K/uL (0.00-0.30); Basophils Percent Auto 0.5 % (0.0-3.0); Eosinophils Absolute Auto 0.28 K/uL (0.00-0.50); Eosinophils Percent Auto 2.6 % (0.0-7.0); Hematocrit 32.3 % (33.0-51.0); Hemoglobin* 10.6 gm/dL (12.0-16.0); Immature Granulocytes Abs Auto 0.03 K/uL (0.00-0.30); Immature Granulocytes Pct Auto 0.3 %; Lymphocytes Absolute Auto 2.58 K/uL (0.90-2.90); Lymphocytes Percent Auto 23.8 % (20-44); Mean Corpuscular HGB Conc 33 gm/dL (32-36); Mean Corpuscular Hemoglobin 32 pg (26-34); Mean Corpuscular Volume 97 fL (80-100); Monocytes Percent Auto 9.2 % (0.0-11.0); Neutrophils Absolute Auto 6.92 K/uL (1.7-7.0); Neutrophils Percent Auto 63.6 % (42.0-72.0); Platelet Count* 319 K/uL (140-440); RDW Coefficient of Variation % 13.3 % (11.5-15.5); Red Blood Count 3.32 m/uL (4.00-5.20); White Blood Count* 10.86 K/uL (4.50-11.00)
[2023-11-16 06:46] LABS: Slide Review Reflex No
[2023-11-16 06:54] LABS: Chloride* 106 mmol/L (96-114); Sodium* 137 mmol/L (135-149)
[2023-11-16 06:57] LABS: Anion Gap 7 mEq/L (7-15); Blood Urea Nitrogen* 32 mg/dL (7-30); Carbon Dioxide* 24 mmol/L (20-32); Creatinine* 1.7 mg/dL (0.5-1.5); Est. Creatinine Clearance* 34.03; Estimated Glomerular Filt Rate 31 ml/min; Glucose* 156 mg/dL (60-115)
[2023-11-16 06:58] LABS: Calcium* 8.7 mg/dL (8.4-10.6)
[2023-11-16 07:09] LABS: Troponin I* 0.03 ng/mL (0.01-0.04)
[2023-11-16] MEDS: HYDRALAZINE 25 MG TABLET 50 MG PO ×2 (08:11→21:58)
[2023-11-16] MEDS: ISOSORBIDE MONONITRATE ER 30 MG TAB 60 MG PO (08:11)
[2023-11-16] MEDS: carvediloL 25 MG TABLET PO ×2 (08:12→21:57)
[2023-11-16] MEDS: AMLODIPINE 10 MG TABLET PO (08:12)
[2023-11-16] MEDS: MULTIVITAMIN/MINERALS 1 TABLET 1 TAB PO (08:12)
[2023-11-16] MEDS: OMEPRAZOLE 20 MG CAPSULE DR 40 MG PO (08:12)
[2023-11-16] MEDS: SODIUM CHLORIDE 0.9 % (FLUSH) 10 ML SYRINGE 5 ML IVF ×2 (08:12→22:04)
[2023-11-16] MEDS: FUROSEMIDE 10 MG/ML inj 60 MG IVP (08:13)
--- NOTE | 2023-11-16 11:39 | PC.NURSE ---
EVENT NOTE: Outside Salesperson assisted pt in ambulating in the halls with portable pulse oximeter in place. HR remained 60s-80s and O2 down to 89% while ambulating. Pt walked about 15 feet out of room and became dizzy/lightheaded so we turned around. Once patient was seated on her bed, she became diaphoretic and HR dropped down to 34 bpm. Pt began vomiting with a total output of [address] Patino made aware and at bedside.
--- NOTE | 2023-11-16 11:48 | P.IMPN_ITS ---
Progress Note: A&P Assessment and plan (1) Acute on chronic heart failure with preserved ejection fraction (HFpEF): Problem details: - signs of volume overload include shortness of breath at rest, dyspnea on exertion, orthopnea, paroxysmal nocturnal dyspnea. Chest x-ray and CTA chest are also suggestive of pulmonary edema with small pleural effusions. CTA chest was negative for PE. Her proBNP is markedly elevated at 5840. She had BNP upon admission for heart failure in March 2023 that was 1,015. Her most recent echocardiogram was 12/23/2022 which showed an EF of 69%. She had previously taken an FIFI-inhibitor an ARB, but these were discontinued secondary to hyperkalemia. She has been taking torsemide 60 mg p.o. daily at home. - start furosemide 60 mg IV b.i.d., 2 g sodium per day diet, 1500 mL per day fluid restriction, monitor I's and O's, daily weights, BMP. Volume status appears to be improved today. Will switch her back to oral torsemide and continue to monitor volume status and electrolytes and dyspnea. I am going to resume her other medications at home doses and monitor her vitals. Status: Acute (2) Hypertensive urgency: Problem details: - Possibly contributing to heart failure, patient now symptomatic with mild chest pain and mild frontal headache. Initial troponin in the emergency department was unremarkable as was EKG, repeat EKG and troponin are pending. Nitro drip was discontinued. Volume status appears improved. Blood pressure improved. Dyspnea improved. Status: Acute (3) Hypertension: Problem details: - chronic, uncontrolled - home antihypertensives include amlodipine, carvedilol, hydralazine, torsemide, isosorbide mononitrate Status: Chronic (4) Hyperlipidemia: Problem details: - Chronic and stable - Continue statin Status: Chronic (5) Type 2 diabetes mellitus: Problem details: - 03/2012 onset - 09/30/2023 hemoglobin A1c 9.4%, uncontrolled - home regimen includes long-acting and short-acting insulin. Continue this and add medium insulin sliding scale a.c. at bedtime. It is Ramadan but patient notes because of her diabetes that she continues to ea t during the day so will give insulin during the day as needed. Status: Chronic (6) Chronic kidney disease, stage 4 (severe): Problem details: - abnormal urine microalbumin - per [facility] records baseline creatinine appears to be 1.3-1.6. She does have higher values up to 2.5, but these appear to be associated with admissions for heart failure. - creatinine today is 1.6 - monitor while diuresing Status: Chronic (7) Anemia: Problem details: - Per [facility] records baseline hemoglobin is 10-11. Hemoglobin on admission is 11.2. - chronic, stable Status: Chronic (8) Vomiting: Problem details: She had 1 episode of vomiting after a brief attempt at walking. Continue to monitor and further evaluation if recurrent episodes Status: Acute Plan Continue in-hospital to monitor her heart failure and hypertension and diabetes on normal medications. Time Spent With Patient Total time spent: Total time spent today is 60 minutes, 40 minutes in coordination of care and discussing with patient and other providers management of dyspnea, heart failure, hypertension and diabetes Subjective Date Seen: 11/16/23 Interval history: HPI: Skylar Pepe is a 73 year old female with a past medical history significant for HFpEF, hypertension, hyperlipidemia, type 2 diabetes mellitus, CKD stage IV, polymyalgia rheumatica, and diabetic polyneuropathy who presents with cough and shortness of breath. Her grandson is in the room with her. She declines foreign exchange clerk and he interprets for her. Her son, Mansoor, was on his son's phone and we had a brief conversation about heart failure with preserved ejection fraction, hypertensive urgency, and the plan of care. She complains of a wet cough that is nonproductive. This has been going on for a few weeks. During that time she has also become increasingly more short of breath both at night and with activity. She gets significantly short of breath just going 10 ft to the bathroom. Sometime she is even short of breath sitting in the chair. At night she sleeps for about an hour and then wakes up coughing, feeling short of breath, and then lays back down on her right side, flat, to sleep. She then continues to wake up every hour with these same symptoms throughout the night. She has chronic lower extremity edema, but has not noticed any worsening over the last few weeks. She occasionally has some chest pain and headache as well. Her history is notable for tension headaches. She does not have any known heart disease, but does have longstanding diabetes. This is her 5th admission for HF exacerbation in the past year. Three were between December-January 2023 and were associated with LYNETTE. Her last admission was in March, her BNP was 1,015, and she was discharged home with home health care. She tells me she has been on a low-sodium diet and fluid restriction. November 15: Patient reports feeling better this morning. She tells me that she is not currently having any shortness of breath at rest. She is not having any chest pain or palpitations. She has not been coughing or hypoxic. I speak with her with the help of an online some [employer] propulsion systems engineer. She does confirm that she gets orthopnea at night and she has fairly severe exertional dyspnea. She sometimes does also get chest pressure when she is ambulating and dyspneic. She also confirms for me today that she is taking her medications as prescribed. There was some question on admission as to whether she was take your medications reliably or not. Overnight she was taken off the nitroglycerin drip and her normal home medications were resumed. Her blood pressure today is in the high normal range. She got up to walk and went about 10 ft and felt lightheaded. She went back to her bed, sat down and had a nonbloody emesis. Recheck of her blood pressure is supine and standing did not show marked orthostatic changes and her blood pres sure was in the high normal range. Exam Narrative: Exam Narrative: She is alert and appears in no distress. Neck is supple without mass or adenopathy. Respirations are clear to auscultation. Cardiovascular: S1, S2, regular rate and rhythm. No murmur gallop or rub. Abdomen: Bowel sounds active. Abdomen is soft without tenderness or mass. Extremities without edema. Const: Vital Signs, click to edit/add: Vital Signs - 24 hr 11/15/23 15:10 11/15/23 15:34 11/15/23 15:39 Temperature 97.5 F L Pulse Rate 79 Pulse Rate [Left P ulse Oximeter] Pulse Rate [Pulse Oximeter] 80 Pulse Rate [orthos tatic sitting Puls e Oximeter] Pulse Rate [orthos tatic standing Pul se Oximeter] Respiratory Rate Blood Pressure 204/108 H Blood Pressure [Ri ght Arm] Blood Pressure [Ri ght Upper Arm] 216/80 H Blood Pressure [or thostatic sitting Right Arm] Blood Pressure [or thostatic standing Right Arm] Pulse Oximetry 96 95 95 Oxygen Delivery Me thod Room Air Oxygen Flow Rate 11/15/23 15:40 11/15/23 15:45 11/15/23 16:00 Temperature Pulse Rate 77 79 80 Pulse Rate [Left P ulse Oximeter] Pulse Rate [Pulse Oximeter] Pulse Rate [orthos tatic sitting Puls e Oximeter] Pulse Rate [orthos tatic standing Pul se Oximeter] Respiratory Rate Blood Pressure Blood Pressure [Ri ght Arm] Blood Pressure [Ri ght Upper Arm] Blood Pressure [or thostatic sitting Right Arm] Blood Pressure [or thostatic standing Right Arm] Pulse Oximetry 94 94 93 Oxygen Delivery Me thod Oxygen Flow Rate 11/15/23 16:02 11/15/23 16:15 11/15/23 16:18 Temperature Pulse Rate 78 77 85 Pulse Rate [Left P ulse Oximeter] Pulse Rate [Pulse Oximeter] Pulse Rate [orthos tatic sitting Puls e Oximeter] Pulse Rate [orthos tatic standing Pul se Oximeter] Respiratory Rate Blood Pressure 229/104 H 228/114 H Blood Pressure [Ri ght Arm] Blood Pressure [Ri ght Upper Arm] Blood Pressure [or thostatic sitting Right Arm] Blood Pressure [or thostatic standing Right Arm] Pulse Oximetry 94 94 94 Oxygen Delivery Me thod Oxygen Flow Rate 11/15/23 16:30 11/15/23 16:32 11/15/23 16:33 Temperature Pulse Rate 76 80 89 Pulse Rate [Left P ulse Oximeter] Pulse Rate [Pulse Oximeter] Pulse Rate [orthos tatic sitting Puls e Oximeter] Pulse Rate [orthos tatic standing Pul se Oximeter] Respiratory Rate Blood Pressure 216/107 H Blood Pressure [Ri ght Arm] Blood Pressure [Ri ght Upper Arm] Blood Pressure [or thostatic sitting Right Arm] Blood Pressure [or thostatic standing Right Arm] Pulse Oximetry 93 95 94 Oxygen Delivery Me thod Oxygen Flow Rate 11/15/23 16:35 11/15/23 16:45 11/15/23 17:00 Temperature Pulse Rate 76 76 Pulse Rate [Left P ulse Oximeter] Pulse Rate [Pulse Oximeter] 105 H Pulse Rate [orthos tatic sitting Puls e Oximeter] Pulse Rate [orthos tatic standing Pul se Oximeter] Respiratory Rate 30 H Blood Pressure Blood Pressure [Ri ght Arm] Blood Pressure [Ri ght Upper Arm] Blood Pressure [or thostatic sitting Right Arm] Blood Pressure [or thostatic standing Right Arm] Pulse Oximetry 84 L 94 94 Oxygen Delivery Me thod Room Air Oxygen Flow Rate 11/15/23 17:00 11/15/23 17:03 11/15/23 17:10 Temperature Pulse Rate 75 Pulse Rate [Left P ulse Oximeter] Pulse Rate [Pulse Oximeter] Pulse Rate [orthos tatic sitting Puls e Oximeter] Pulse Rate [orthos tatic standing Pul se Oximeter] Respiratory Rate Blood Pressure 225/99 H Blood Pressure [Ri ght Arm] Blood Pressure [Ri ght Upper Arm] Blood Pressure [or thostatic sitting Right Arm] Blood Pressure [or thostatic standing Right Arm] Pulse Oximetry 94 95 84 L Oxygen Delivery Me thod Nasal Cannula Room Air Oxygen Flow Rate 2 11/15/23 17:27 11/15/23 19:00 11/15/23 19:54 Temperature 97.8 F 97.7 F Pulse Rate Pulse Rate [Left P ulse Oximeter] Pulse Rate [Pulse Oximeter] Pulse Rate [orthos tatic sitting Puls e Oximeter] Pulse Rate [orthos tatic standing Pul se Oximeter] Respiratory Rate 18 20 20 Blood Pressure Blood Pressure [Ri ght Arm] 205/101 H 210/97 H Blood Pressure [Ri ght Upper Arm] Blood Pressure [or thostatic sitting Right Arm] Blood Pressure [or thostatic standing Right Arm] Pulse Oximetry 97 96 Oxygen Delivery Me thod Room Air Room Air Oxygen Flow Rate 11/15/23 20:45 11/15/23 20:56 11/15/23 21:54 Temperature 97.9 F Pulse Rate 78 Pulse Rate [Left P ulse Oximeter] 78 86 Pulse Rate [Pulse Oximeter] Pulse Rate [orthos tatic sitting Puls e Oximeter] Pulse Rate [orthos tatic standing Pul se Oximeter] Respiratory Rate 20 Blood Pressure Blood Pressure [Ri ght Arm] 201/91 H 216/98 H Blood Pressure [Ri ght Upper Arm] Blood Pressure [or thostatic sitting Right Arm] Blood Pressure [or thostatic standing Right Arm] Pulse Oximetry 93 Oxygen Delivery Me thod Room Air Oxygen Flow Rate 11/15/23 22:02 11/15/23 22:05 11/15/23 22:10 Temperature Pulse Rate Pulse Rate [Left P ulse Oximeter] 84 85 86 Pulse Rate [Pulse Oximeter] Pulse Rate [orthos tatic sitting Puls e Oximeter] Pulse Rate [orthos tatic standing Pul se Oximeter] Respiratory Rate Blood Pressure Blood Pressure [Ri ght Arm] 217/93 H 213/91 H 204/110 H Blood Pressure [Ri ght Upper Arm] Blood Pressure [or thostatic sitting Right Arm] Blood Pressure [or thostatic standing Right Arm] Pulse Oximetry Oxygen Delivery Me thod Oxygen Flow Rate 11/15/23 22:15 11/15/23 22:20 11/15/23 22:25 Temperature Pulse Rate Pulse Rate [Left P ulse Oximeter] 83 84 84 Pulse Rate [Pulse Oximeter] Pulse Rate [orthos tatic sitting Puls e Oximeter] Pulse Rate [orthos tatic standing Pul se Oximeter] Respiratory Rate Blood Pressure Blood Pressure [Ri ght Arm] 198/100 H 210/96 H 220/92 H Blood Pressure [Ri ght Upper Arm] Blood Pressure [or thostatic sitting Right Arm] Blood Pressure [or thostatic standing Right Arm] Pulse Oximetry Oxygen Delivery Me thod Oxygen Flow Rate 11/15/23 22:30 11/15/23 22:35 11/15/23 22:40 Temperature Pulse Rate Pulse Rate [Left P ulse Oximeter] 85 82 86 Pulse Rate [Pulse Oximeter] Pulse Rate [orthos tatic sitting Puls e Oximeter] Pulse Rate [orthos tatic standing Pul se Oximeter] Respiratory Rate Blood Pressure Blood Pressure [Ri ght Arm] 196/95 H 195/91 H 179/86 H Blood Pressure [Ri ght Upper Arm] Blood Pressure [or thostatic sitting Right Arm] Blood Pressure [or thostatic standing Right Arm] Pulse Oximetry Oxygen Delivery Me thod Oxygen Flow Rate 11/15/23 22:41 11/15/23 22:45 11/15/23 22:50 Temperature Pulse Rate 82 Pulse Rate [Left P ulse Oximeter] 81 82 Pulse Rate [Pulse Oximeter] Pulse Rate [orthos tatic sitting Puls e Oximeter] Pulse Rate [orthos tatic standing Pul se Oximeter] Respiratory Rate Blood Pressure Blood Pressure [Ri ght Arm] 180/87 H 179/82 H Blood Pressure [Ri ght Upper Arm] Blood Pressure [or thostatic sitting Right Arm] Blood Pressure [or thostatic standing Right Arm] Pulse Oximetry Oxygen Delivery Me thod Oxygen Flow Rate 11/15/23 22:55 11/15/23 23:00 11/15/23 23:00 Temperature Pulse Rate Pulse Rate [Left P ulse Oximeter] 84 82 Pulse Rate [Pulse Oximeter] Pulse Rate [orthos tatic sitting Puls e Oximeter] Pulse Rate [orthos tatic standing Pul se Oximeter] Respiratory Rate 20 Blood Pressure Blood Pressure [Ri ght Arm] 185/87 H 189/94 H Blood Pressure [Ri ght Upper Arm] Blood Pressure [or thostatic sitting Right Arm] Blood Pressure [or thostatic standing Right Arm] Pulse Oximetry 93 Oxygen Delivery Me thod Room Air Oxygen Flow Rate 11/15/23 23:05 11/15/23 23:10 11/15/23 23:15 Temperature 97.8 F Pulse Rate Pulse Rate [Left P ulse Oximeter] 83 80 79 Pulse Rate [Pulse Oximeter] Pulse Rate [orthos tatic sitting Puls e Oximeter] Pulse Rate [orthos tatic standing Pul se Oximeter] Respiratory Rate 18 Blood Pressure Blood Pressure [Ri ght Arm] 187/82 H 192/92 H 187/80 H Blood Pressure [Ri ght Upper Arm] Blood Pressure [or thostatic sitting Right Arm] Blood Pressure [or thostatic standing Right Arm] Pulse Oximetry 92 Oxygen Delivery Me thod Room Air Oxygen Flow Rate 11/15/23 23:30 11/16/23 00:00 11/16/23 01:00 Temperature Pulse Rate Pulse Rate [Left P ulse Oximeter] 81 85 77 Pulse Rate [Pulse Oximeter] Pulse Rate [orthos tatic sitting Puls e Oximeter] Pulse Rate [orthos tatic standing Pul se Oximeter] Respiratory Rate Blood Pressure Blood Pressure [Ri ght Arm] 189/89 H 195/89 H 155/71 H Blood Pressure [Ri ght Upper Arm] Blood Pressure [or thostatic sitting Right Arm] Blood Pressure [or thostatic standing Right Arm] Pulse Oximetry Oxygen Delivery Me thod Oxygen Flow Rate 11/16/23 01:30 11/16/23 02:00 11/16/23 02:30 Temperature Pulse Rate Pulse Rate [Left P ulse Oximeter] 75 79 78 Pulse Rate [Pulse Oximeter] Pulse Rate [orthos tatic sitting Puls e Oximeter] Pulse Rate [orthos tatic standing Pul se Oximeter] Respiratory Rate Blood Pressure Blood Pressure [Ri ght Arm] 161/69 H 161/79 H 165/77 H Blood Pressure [Ri ght Upper Arm] Blood Pressure [or thostatic sitting Right Arm] Blood Pressure [or thostatic standing Right Arm] Pulse Oximetry Oxygen Delivery Me thod Oxygen Flow Rate 11/16/23 02:42 11/16/23 03:00 11/16/23 04:00 Temperature 97.5 F L Pulse Rate 79 Pulse Rate [Left P ulse Oximeter] 81 81 Pulse Rate [Pulse Oximeter] Pulse Rate [orthos tatic sitting Puls e Oximeter] Pulse Rate [orthos tatic standing Pul se Oximeter] Respiratory Rate 18 Blood Pressure Blood Pressure [Ri ght Arm] 160/86 H 180/100 H Blood Pressure [Ri ght Upper Arm] Blood Pressure [or thostatic sitting Right Arm] Blood Pressure [or thostatic standing Right Arm] Pulse Oximetry 92 Oxygen Delivery Me thod Room Air Oxygen Flow Rate 11/16/23 05:00 11/16/23 06:00 11/16/23 07:00 Temperature 98.1 F Pulse Rate 78 Pulse Rate [Left P ulse Oximeter] 86 77 Pulse Rate [Pulse Oximeter] Pulse Rate [orthos tatic sitting Puls e Oximeter] Pulse Rate [orthos tatic standing Pul se Oximeter] Respiratory Rate 20 Blood Pressure Blood Pressure [Ri ght Arm] 181/68 H 193/92 H Blood Pressure [Ri ght Upper Arm] Blood Pressure [or thostatic sitting Right Arm] Blood Pressure [or thostatic standing Right Arm] Pulse Oximetry 93 Oxygen Delivery Me thod Room Air Oxygen Flow Rate 11/16/23 07:00 11/16/23 07:00 11/16/23 07:00 Temperature 98.5 F Pulse Rate Pulse Rate [Left P ulse Oximeter] 75 77 Pulse Rate [Pulse Oximeter] Pulse Rate [orthos tatic sitting Puls e Oximeter] Pulse Rate [orthos tatic standing Pul se Oximeter] Respiratory Rate 20 20 20 Blood Pressure Blood Pressure [Ri ght Arm] 190/84 H Blood Pressure [Ri ght Upper Arm] Blood Pressure [or thostatic sitting Right Arm] Blood Pressure [or thostatic standing Right Arm] Pulse Oximetry 92 92 Oxygen Delivery Me thod Room Air Room Air Oxygen Flow Rate 11/16/23 08:00 11/16/23 09:00 11/16/23 10:00 Temperature 97.9 F Pulse Rate Pulse Rate [Left P ulse Oximeter] 81 77 72 Pulse Rate [Pulse Oximeter] Pulse Rate [orthos tatic sitting Puls e Oximeter] Pulse Rate [orthos tatic standing Pul se Oximeter] Respiratory Rate 22 Blood Pressure Blood Pressure [Ri ght Arm] 196/87 H 142/64 H 128/70 Blood Pressure [Ri ght Upper Arm] Blood Pressure [or thostatic sitting Right Arm] Blood Pressure [or thostatic standing Right Arm] Pulse Oximetry 95 Oxygen Delivery Me thod Room Air Oxygen Flow Rate 11/16/23 10:25 11/16/23 10:58 11/16/23 11:00 Temperature Pulse Rate 71 Pulse Rate [Left P ulse Oximeter] 61 Pulse Rate [Pulse Oximeter] Pulse Rate [orthos tatic sitting Puls e Oximeter] 34 L Pulse Rate [orthos tatic standing Pul se Oximeter] 69 Respiratory Rate Blood Pressure Blood Pressure [Ri ght Arm] Blood Pressure [Ri ght Upper Arm] Blood Pressure [or thostatic sitting Right Arm] 138/75 Blood Pressure [or thostatic standing Right Arm] 131/64 Pulse Oximetry 89 Oxygen Delivery Me thod Room Air Oxygen Flow Rate 11/16/23 11:00 11/16/23 11:00 Temperature Pulse Rate Pulse Rate [Left P ulse Oximeter] 71 71 Pulse Rate [Pulse Oximeter] Pulse Rate [orthos tatic sitting Puls e Oximeter] Pulse Rate [orthos tatic standing Pul se Oximeter] Respiratory Rate 20 20 Blood Pressure Blood Pressure [Ri ght Arm] 117/78 Blood Pressure [Ri ght Upper Arm] Blood Pressure [or thostatic sitting Right Arm] Blood Pressure [or thostatic standing Right Arm] Pulse Oximetry 94 Oxygen Delivery Me thod Room Air Oxygen Flow Rate Documenting provider has reviewed patient's vital signs: yes Labs Labs: Laboratory Results - last 24 hr 11/15/23 11/15/23 11/15/23 15:40 16:00 19:30 WBC 12.48 H RBC 3.58 L Hgb 11.2 L Hct 35.1 MCV 98 MCH 31 MCHC 32 RDW Coeff of Lauri 13.2 Plt Count 332 Neut % (Auto) 60.0 Lymph % (Auto) 28.1 [place] % (Auto) 7.9 Eos % (Auto) 3.3 Baso % (Auto) 0.3 Neut # (Auto) 7.50 H Lymph # (Auto) 3.50 H [place] # (Auto) 1.00 H Eos # (Auto) 0.40 Baso # (Auto) 0.00 Abs Immat Gran (auto) 0.00 Imm/Tot Granulo (auto) 0.4 D-Dimer Quant (PE/DVT) 2.72 H VBG pH 7.397 VBG pCO2 39 L VBG pO2 43.7 VBG HCO3 24 Sodium 138 Potassium 4.3 Chloride 108 Carbon Dioxide 23 Anion Gap 7 BUN 33 H Creatinine 1.6 H Estimated Creat Clear 30.65 Estimated GFR 33 Glucose 85 Calcium 9.0 Total Bilirubin 0.6 Direct Bilirubin 0.2 AST 39 H ALT 27 Alkaline Phosphatase 140 Troponin I 0.02 C-Reactive Protein 3.4 H NT-Pro-B Natriuret Pep 5840 Total Protein 8.7 H Albumin 3.8 TSH 3.250 SARS-CoV-2 (PCR) Negative SARS-CoV-2 Influenza Type A (PCR) Negative PCR FLU A Influenza Type B (PCR) Negative PCR FLU B RSV (PCR) Negative PCR RSV POC Troponin I 0.02 11/16/23 05:55 WBC 10.86 RBC 3.32 L Hgb 10.6 L Hct 32.3 L MCV 97 MCH 32 MCHC 33 RDW Coeff of Lauri 13.3 Plt Count 319 Neut % (Auto) 63.6 Lymph % (Auto) 23.8 [place] % (Auto) 9.2 Eos % (Auto) 2.6 Baso % (Auto) 0.5 Neut # (Auto) 6.92 Lymph # (Auto) 2.58 [place] # (Auto) 1.00 H Eos # (Auto) 0.28 Baso # (Auto) 0.05 Abs Immat Gran (auto) 0.03 Imm/Tot Granulo (auto) 0.3 D-Dimer Quant (PE/DVT) VBG pH VBG pCO2 VBG pO2 VBG HCO3 Sodium 137 Potassium 4.0 Chloride 106 Carbon Dioxide 24 Anion Gap 7 BUN 32 H Creatinine 1.7 H Estimated Creat Clear 34.03 Estimated GFR 31 Glucose 156 H Calcium 8.7 Total Bilirubin Direct Bilirubin AST ALT Alkaline Phosphatase Troponin I 0.03 C-Reactive Protein NT-Pro-B Natriuret Pep Total Protein Albumin TSH SARS-CoV-2 (PCR) Influenza Type A (PCR) Influenza Type B (PCR) RSV (PCR) POC Troponin I
[2023-11-16] MEDS: ONDANSETRON 2 MG/ML inj 4 MG IVP (12:09)
[2023-11-16] MEDS: TORSEMIDE 20 MG TABLET 60 MG PO (12:11)
--- NOTE | 2023-11-16 14:55 | PC.NURSE ---
End of shift [id number]: Pt is A&O x4 and afebrile. Pt is independent in her room with her own quad cane. Pt was in a hypertensive emergency upon admission but that has now been corrected and resolved. She remains on the high normal end of SBP. Her home meds were resumed today- she takes one pill at a time d/t nausea from swallowing so many pills. Her son Mansoor was here earlier and was interpreting for patient but since he left; we?ve been using iPad record center specialist for her and her daughter. Pt had a vagal episode after walking about 15 feet earlier this afternoon- her HR dropped to the 30s and she became diaphoretic with 200mL emesis. MD aware and discharge postponed to tomorrow, potentially. Daily orthostatic BP?s ordered which were unremarkable today. Pt received IV Zofran @ 1210 and has not been nauseated since. Her blood sugars were 124 > 123; no insulin given today. She?s had a poor appetite and only ate 50% of her breakfast but wished to keep her meal tray in her room throughout the day. Pt noted to have low U/O so a bladder scan was done @ 1400 reading 298 mL at the highest. When nurse explained urinary retention and straight catheterization; pt reported she can use the bathroom and has no problem urinating. She then voided 400 mL yellow, hazy urine and her bladder was too small to be found on the scanner. TELE reads SR with PAPO. PIV in left AC was SL this morning when Nitro gtt discontinued. Fluid restriction of 1500mL remains is being followed. ?
[2023-11-16] MEDS: INSULIN ASPART 100 UNIT/ML SUBCUT (18:06)
--- NOTE | 2023-11-16 22:55 | PC.NURSE ---
2 RNs attempt to restart IV-unsuccessfully. Noted pt not on fluids or antibiotics-MD aware and IV mat remain our for now.
--- NOTE | 2023-11-17 | PC.NURSE ---
Patient pleasant, alert and oriented. Ambulated with quad cane and stand by assist without any difficulty. O2 sats 90-94% on room air. Tolerated regular diet. Denies any pain.?Daughter here earlier this shift. [employer] ipad used to communicate at that time. Son here now and interprets for patient. BS 174 and 171. Patient requested Levemir be given at HS instead of 1800. Patient refused HS Novolog. IV to left forearm discontinued as no longer patent. New IV insertion attempts not effective. Per ok to discontinue IV.?
[2023-11-17 01:02] VITALS: RESP 18
[2023-11-17 01:03] VITALS: PULSE 80
[2023-11-17 03:58] VITALS: BP 155/64; PULSE 79; RESP 18; TEMP 36.8; O2SAT 91
[2023-11-17 06:40] LABS: Basophils Absolute Auto 0.05 K/uL (0.00-0.30); Basophils Percent Auto 0.5 % (0.0-3.0); Eosinophils Absolute Auto 0.41 K/uL (0.00-0.50); Eosinophils Percent Auto 4.1 % (0.0-7.0); Hematocrit 30.8 % (33.0-51.0); Hemoglobin* 9.9 gm/dL (12.0-16.0); Immature Granulocytes Abs Auto 0.02 K/uL (0.00-0.30); Immature Granulocytes Pct Auto 0.2 %; Lymphocytes Absolute Auto 2.97 K/uL (0.90-2.90); Lymphocytes Percent Auto 29.9 % (20-44); Mean Corpuscular HGB Conc 32 gm/dL (32-36); Mean Corpuscular Hemoglobin 32 pg (26-34); Mean Corpuscular Volume 99 fL (80-100); Monocytes Percent Auto 10.2 % (0.0-11.0); Neutrophils Absolute Auto 5.48 K/uL (1.7-7.0); Neutrophils Percent Auto 55.1 % (42.0-72.0); Platelet Count* 317 K/uL (140-440); RDW Coefficient of Variation % 13.4 % (11.5-15.5); White Blood Count* 9.94 K/uL (4.50-11.00)
[2023-11-17 06:49] LABS: Slide Review Reflex No
--- NOTE | 2023-11-17 06:58 | PC.NURSE ---
End of shift [id number]: A&O pleasant and cooperative. Son in room overnight. Declined light rail train operator. Son interpreting for patient. VSS. Pt denies SOB or chest pain. Up with SBA to bathroom. Denying any pain. Pt appeared to rest comfortably overnight.
[2023-11-17 07:00] LABS: Albumin* 3.4 g/dL (3.3-5.0)
[2023-11-17 07:01] LABS: Chloride* 106 mmol/L (96-114); Potassium* 4.4 mmol/L (3.6-5.1); Sodium* 139 mmol/L (135-149)
[2023-11-17 07:03] LABS: Anion Gap 6 mEq/L (7-15); Bilirubin Direct* 0.2 mg/dL (0.0-0.5); Bilirubin Total* 0.3 mg/dL (0.1-1.5); Carbon Dioxide* 27 mmol/L (20-32); Creatinine* 2.5 mg/dL (0.5-1.5); Est. Creatinine Clearance* 23.14; Estimated Glomerular Filt Rate 20 ml/min
[2023-11-17 07:04] LABS: Alanine Aminotransferase* 18 U/L (4-35); Alkaline Phosphatase* 109 U/L (40-150); Aspartate Amino Transferase* 21 U/L (12-35); Blood Urea Nitrogen* 36 mg/dL (7-30); Glucose* 131 mg/dL (60-115); Total Protein* 7.5 g/dL (6.0-8.3)
[2023-11-17 07:05] LABS: Magnesium* 1.9 mg/dL (1.5-2.6)
[2023-11-17 07:16] LABS: Troponin I* 0.02 ng/mL (0.01-0.04)
[2023-11-17 08:39] VITALS: PULSE 101
[2023-11-17 08:40] VITALS: BP 148/59; PULSE 91; RESP 16; TEMP 37.7; O2SAT 92
[2023-11-17] MEDS: HYDRALAZINE 25 MG TABLET 50 MG PO (09:14)
[2023-11-17] MEDS: OMEPRAZOLE 20 MG CAPSULE DR 40 MG PO (09:15)
[2023-11-17] MEDS: MULTIVITAMIN/MINERALS 1 TABLET 1 TAB PO (09:15)
[2023-11-17] MEDS: ISOSORBIDE MONONITRATE ER 30 MG TAB 60 MG PO (09:15)
[2023-11-17] MEDS: carvediloL 25 MG TABLET PO (09:15)
[2023-11-17] MEDS: AMLODIPINE 10 MG TABLET PO (09:15)
[2023-11-17] MEDS: SODIUM CHLORIDE 0.9 % (FLUSH) 10 ML SYRINGE 5 ML IVF (09:16)
[2023-11-17 12:44] VITALS: BMI 28.0
--- NOTE | 2023-11-17 13:23 | PM.DS1 ---
DS: Providers Provider Date Seen: 11/17/23 Date of admission: 11/15/23 18:41 Primary care physician: Not a Local Provider Admitting Clinician: Analia Boss MD Attending Physician on discharge: Fredrick Patino MD Date of Discharge: 11/17/23 DS: Diagnosis Discharge Diagnosis (1) Hypertensive urgency: Status: Acute Problem details: - Possibly contributing to heart failure, patient was symptomatic with mild chest pain and mild frontal headache. Now asymptomatic. Initial troponin in the emergency department was unremarkable as was EKG, repeat EKG and troponin are pending. Initially treated with nitroglycerin drip then restarted home medications. Volume status appears improved. Blood pressure improved. Dyspnea improved. (2) Chronic kidney disease, stage 4 (severe): Status: Chronic Problem details: - abnormal urine microalbumin - per [facility] records baseline creatinine appears to be 1.3-1.6. She does have higher values up to 2.5, but these appear to be associated with admissions for heart failure. - creatinine today is 1.6 - monitor while diuresing (3) Type 2 diabetes mellitus: Status: Chronic Problem details: - 03/2012 onset - 09/30/2023 hemoglobin A1c 9.4%, uncontrolled - home regimen includes long-acting and short-acting insulin. Continue this and add medium insulin sliding scale a.c. at bedtime. It is Ramadan but patient notes because of her diabetes that she continues to eat during the day so will give insulin during the day as needed. (4) Acute on chronic heart failure with preserved ejection fraction (HFpEF): Status: Acute Problem details: - signs of volume overload include shortness of breath at rest, dyspnea on exertion, orthopnea, paroxysmal nocturnal dyspnea. Chest x-ray and CTA chest are also suggestive of pulmonary edema with small pleural effusions. CTA chest was negative for PE. Her proBNP is markedly elevated at 5840. She had BNP upon admission for heart failure in March 2023 that was 1,015. Her most recent echocardiogram was 12/23/2022 which showed an EF of 69%. She had previously taken an FIFI-inhibitor an ARB, but these were discontinued secondary to hyperkalemia. She has been taking torsemide 60 mg p.o. daily at home. - start furosemide 60 mg IV b.i.d., 2 g sodium per day diet, 1500 mL per day fluid restriction, monitor I's and O's, daily weights, BMP. Volume status appears to be improved today. Will switch her back to oral torsemide and continue to monitor volume status and electrolytes and dyspnea. I am going to resume her other medications at home doses and monitor her vitals. (5) Vomiting: Status: Acute Problem details: She had 1 episode of vomiting after a brief attempt at walking. Continue to monitor and further evaluation if recurrent episodes (6) Prescription medication compliance status: Status: Acute Problem details: Patient has had recurrent hospitalizations for heart failure and hypertensive crisis. She reports that she is taking her medications as prescribed. She was markedly hypertensive when she came here and resuming her home medications she has been in the high normal range for blood pressure. Raises the possibility of some medication noncompliance prior to admission. I encouraged the patient to take medications as prescribed and to get help from family or others to set up medications if necessary (7) Acute kidney injury superimposed on chronic kidney disease: Status: Acute Problem details: On admission creatinine was 1.6 which is close to baseline. Today creatinine went up to 2.5. This was suspected to be due to vigorous diuresis for heart failure on admission. I recommended she continue in the hospital for management and monitoring of her creatinine but she insisted on going home today with very close follow-up in the next 1-2 days to recheck her medications, hypertension, heart failure and renal function with basic metabolic panel. DS: Summary Hospital Course Hospital Course: HPI: Skylar Pepe is a 73 year old female with a past medical history significant for HFpEF, hypertension, hyperlipidemia, type 2 diabetes mellitus, CKD stage IV, polymyalgia rheumatica, and diabetic polyneuropathy who presents with cough and shortness of breath. Her grandson is in the room with her. She declines motor vehicle parts interpreter and he interprets for her. Her son, Mansoor, was on his son's phone and we had a brief conversation about heart failure with preserved ejection fraction, hypertensive urgency, and the plan of care. She complains of a wet cough that is nonproductive. This has been going on for a few weeks. During that time she has also become increasingly more short of breath both at night and with activity. She gets significantly short of breath just going 10 ft to the bathroom. Sometime she is even short of breath sitting in the chair. At night she sleeps for about an hour and then wakes up coughing, feeling short of breath, and then lays back down on her right side, flat, to sleep. She then continues to wake up every hour with these same symptoms throughout the night. She has chronic lower extremity edema, but has not noticed any worsening over the last few weeks. She occasionally has some chest pain and headache as well. Her history is notable for tension headaches. She does not have any known heart disease, but does have longstanding diabetes. This is her 5th admission for HF exacerbation in the past year. Three were between December-January 2023 and were associated with LYNETTE. Her last admission was in March, her BNP was 1,015, and she was discharged home with home health care. She tells me she has been on a low-sodium diet and fluid restriction. November 15: Patient reports feeling better this morning. She tells me that she is not currently having any shortness of breath at rest. She is not having any chest pain or palpitations. She has not been coughing or hypoxic. I speak with her with the help of an online some Shereen gleason operator. She does confirm that she gets orthopnea at night and she has fairly severe exertional dyspnea. She sometimes does also get chest pressure when she is ambulating and dyspneic. She also confirms for me today that she is taking her medications as prescribed. There was some question on admission as to whether she was take your medications reliably or not. Overnight she was taken off the nitroglycerin drip and her normal home medications were resumed. Her blood pressure today is in the high normal range. She got up to walk and went about 10 ft and felt lightheaded. She went back to her bed, sat down and had a nonbloody emesis. Recheck of her blood pressure is supine and standing did not show marked orthostatic changes and her blood pressure was in the high normal range. November 16: Patient feels fine today. She denies headache, chest pain, shortness of breath. She reports her appetite is normal she is having no nausea. Overnight her blood pressures have been in the high normal range. She was able to ambulate 125 ft today. She did not get dizzy or nauseated as she did yesterday. Because her creatinine has increased from 1.6-2.5 during this hospital stay I asked her to stay another day for monitoring and management of acute kidney injury. She declined this and requested going home today. I indicated that she would need very close follow-up as an outpatient, recheck in clinic in 1-2 days. She is agreeable to this. Status at Discharge Overall status at discharge: patient is progressing back to baseline Time Spent with Patient Time attestation: Total time spent providing and/or coordinating discharge services: 40 minutes Time spent: Greater than 30 minutes Exam Narrative: Exam Narrative: She is alert and appears in no distress. Breathing is unlabored. Cardiovascular: S1, S2, regular rate and rhythm. Const: Vital Signs, click to edit/add: Vital Signs - 24 hr 11/16/23 15:00 11/16/23 15:00 11/16/23 15:00 Temperature 98.0 F Pulse Rate 74 Pulse Rate [Left P ulse Oximeter] 78 Respiratory Rate 20 20 Blood Pressure [Ri ght Arm] 136/60 Pulse Oximetry 90 90 Oxygen Delivery Me thod Room Air Room Air 11/16/23 15:55 11/16/23 17:05 11/16/23 18:10 Temperature Pulse Rate Pulse Rate [Left P ulse Oximeter] Respiratory Rate Blood Pressure [Ri ght Arm] 156/69 H 143/67 H 138/62 Pulse Oximetry Oxygen Delivery Me thod 11/16/23 19:00 11/16/23 20:00 11/16/23 23:35 Temperature 97.9 F 97.8 F Pulse Rate Pulse Rate [Left P ulse Oximeter] 73 73 Respiratory Rate 20 18 Blood Pressure [Ri ght Arm] 150/76 H 148/67 H 139/66 Pulse Oximetry 94 92 Oxygen Delivery Me thod Room Air Room Air 11/16/23 23:52 11/17/23 01:02 11/17/23 01:03 Temperature Pulse Rate 80 Pulse Rate [Left P ulse Oximeter] Respiratory Rate 18 Blood Pressure [Ri ght Arm] Pulse Oximetry 92 Oxygen Delivery Me thod Room Air 11/17/23 03:58 11/17/23 08:39 11/17/23 08:40 Temperature 98.2 F 99.9 F H Pulse Rate 101 H Pulse Rate [Left P ulse Oximeter] 79 91 Respiratory Rate 18 16 Blood Pressure [Ri ght Arm] 155/64 H 148/59 H Pulse Oximetry 91 92 Oxygen Delivery Me thod Room Air Room Air 11/17/23 08:40 Temperature Pulse Rate Pulse Rate [Left P ulse Oximeter] Respiratory Rate 16 Blood Pressure [Ri ght Arm] Pulse Oximetry 92 Oxygen Delivery Me thod Room Air Documenting provider has reviewed patient's vital signs: yes DS: Data Data Completed and Pending Labs on day of discharge: Labs from last 24 hours 11/17/23 06:20 WBC 9.94 RBC 3.10 L Hgb 9.9 L Hct 30.8 L MCV 99 MCH 32 MCHC 32 RDW Coeff of Lauri 13.4 Plt Count 317 Neut % (Auto) 55.1 Lymph % (Auto) 29.9 Otero % (Auto) 10.2 Eos % (Auto) 4.1 Baso % (Auto) 0.5 Neut # (Auto) 5.48 Lymph # (Auto) 2.97 H Otero # (Auto) 1.00 H Eos # (Auto) 0.41 Baso # (Auto) 0.05 Abs Immat Gran (auto) 0.02 Imm/Tot Granulo (auto) 0.2 Sodium 139 Potassium 4.4 Chloride 106 Carbon Dioxide 27 Anion Gap 6 L BUN 36 H Creatinine 2.5 H Estimated Creat Clear 23.14 Estimated GFR 20 Glucose 131 H Calcium 8.0 L Magnesium 1.9 Total Bilirubin 0.3 Direct Bilirubin 0.2 AST 21 ALT 18 Alkaline Phosphatase 109 Troponin I 0.02 Total Protein 7.5 Albumin 3.4 Discharge Plan Discharge Disposition: Home, Self-Care Date of Admission: 11/15/23 18:41 Attending Provider on Discharge: Reynaldo Patino Primary Care Provider: Provider,Not a Local Condition: Stable Anticipated Discharge Date/Time: 11/17/23 12:01 Discharge Medications: Continued insulin aspart U-100 100 unit/mL cartridge 8 unit subcut DAILY insulin glargine 100 unit/mL solution 30 unit subcut QPM isosorbide mononitrate 30 mg tablet extended release 24 hr 30 mg PO DAILY guanfacine 1 mg tablet 1 mg PO BID hydralazine 50 mg tablet 50 mg PO BID prochlorperazine maleate [Compazine] 10 mg tablet 10 mg PO TID torsemide 20 mg tablet 60 mg PO DAILY omeprazole 40 mg capsule,delayed release(DR/EC) 40 mg PO DAILY amlodipine [Norvasc] 10 mg tablet 10 mg PO DAILY Lubricant Eye (PG-PEG 400) 0.4-0.3 % drops 1 drp ophthalmic (eye) BID PRN acetaminophen [Acetaminophen Extra Strength] 500 mg tablet 1,000 mg PO TID PRN carvedilol [Coreg] 25 mg tablet 25 mg PO BID Rx Instructions: must administer with a meal/food albuterol sulfate 90 mcg/actuation HFA aerosol inhaler 2 puff INHALATION QID PRN (Reason: dyspnea) ergocalciferol (vitamin D2) 1,250 mcg (50,000 unit) capsule 1,250 mcg PO Q7D multivitamin with folic acid [Tab-A-Doreen] 400 mcg tablet 1 tab PO DAILY Discharge Orders: Discharge Order (Routine); Ordered 11/17/23 Ordered By: Reynaldo Patino Patient Education: Heart Failure (DC), Chronic Hypertension (DC) Activity Level: Activity as Tolerated Discharge Diet: Heart Healthy (2 gm sodium, low fat) Follow Up Appointments: Leander Zheng MD [Referring] - (Beatriz Asher will contact the patient for follow up this Wednesday. They have notes to recheck of blood pressure, heart disease, kidney disease and Basic metabolic panel.) Provider,Not a Local [Primary Care Provider] - Forms: [employer] Info Instructions
== END 2023-11-17 13:47 | disposition home or self-care (01) | DRG 291 ==
LOC: ED 17:04 → MEDSURG 17:11
PROVIDERS: Family Medicine; Admitting Provider Family Medicine; Emergency Provider Emergency Medicine; Visit Provider Family Medicine
DX: I13.0 Hypertensive heart and chronic kidney disease with heart failure and stage 1 through stage 4 chronic kidney disease, or unspecified chronic kidney disease (principal); I50.31 Acute diastolic (congestive) heart failure; N18.4 Chronic kidney disease, stage 4 (severe); I16.0 Hypertensive urgency; E78.5 Hyperlipidemia, unspecified; Z79.4 Long term (current) use of insulin; K21.9 Gastro-esophageal reflux disease without esophagitis; D64.9 Anemia, unspecified; R11.10 Vomiting, unspecified; I45.10 Unspecified right bundle-branch block; M35.3 Polymyalgia rheumatica; E11.42 Type 2 diabetes mellitus with diabetic polyneuropathy; G44.209 Tension-type headache, unspecified, not intractable; M85.80 Other specified disorders of bone density and structure, unspecified site
CPT/HCPCS: 36415; 51798; 71045; 71275; 80048; 80076; 82803; 82962; 83735; 83880; 84443; 84484; 85025; 85379; 86140; 87631; 93005; 93971; 94761; 99284; 99285; A9153; A9270; J1650; J1940; J2405; Q9967